=== PATIENT | female | born 1960 | race Caucasian/White ===

== ENCOUNTER 2024-11-08 12:35 | Emergency (ER) | payer OTHER ==
[~2024-11-08] VITALS: Ht 160 cm; Wt 77.0 kg
[2024-11-08 12:52] VITALS: O2SAT 98
[2024-11-08 13:01] VITALS: TEMP 36.7; O2SAT 98
[2024-11-08 15:31] LABS: EOSINOPHILS % 1.7 % (0.0-5.0); HEMATOCRIT. 38.9 % (36.0-48.0); HEMOGLOBIN. 13.1 g/dL (12.0-16.0); LYMPHOCYTES % 37.1 % (20.0-50.0); MEAN CORPUSCULAR HEMOGLOBIN 31.5 pg (28.0-32.0); MEAN CORPUSCULAR HGB CONC 33.7 g/dL (31.0-37.0); MEAN CORPUSCULAR VOLUME 93.5 fL (81.0-99.0); MEAN PLATELET VOLUME 9.2 fl (7.4-10.4); MONOCYTES % 6.6 % (2.0-8.0); NEUTROPHILS % 53.6 % (40.0-76.0); PLATELET 223 x1000/uL (130-400); RED BLOOD CELL COUNT 4.16 mill/uL (4.2-5.4); RED CELL DISTRIBUTION WIDTH 13.2 % (11.6-14.6); WHITE BLOOD COUNT 8.3 x1000/uL (4.5-11.0)
[2024-11-08 15:37] LABS: CHLORIDE 107 mEq/L (98-107); POTASSIUM 4.3 mEq/L (3.5-5.1); SODIUM 141 mEq/L (136-145)
[2024-11-08 15:38] LABS: CALCIUM 8.8 mg/dL (8.7-10.4); CARBON DIOXIDE 28 mEq/L (21-32)
[2024-11-08 15:43] LABS: CREATININE 0.8 mg/dL (0.6-1.0); GLUCOSE 102 mg/dL (70-105); UREA NITROGEN BLOOD 16 mg/dL (9-23)
[2024-11-08 15:50] LABS: TROPONIN I HIGH SENSITIVITY < 4 ng/L (3.0-34)
[2024-11-08 16:09] LABS: PROTHROMBIN TIME 10.5 sec (9.6-11.0)
[2024-11-08 17:13] VITALS: BP 131/78; PULSE 84; RESP 15
[2024-11-08] MEDS: KETOROLAC 30MG/ML VIAL IM ONE (17:13)
[2024-11-08] MEDS ORDERED: KETO10TA2 MT (17:14)
== END 2024-11-08 17:28 | disposition home or self-care (01) ==
LOC: ER 12:35
DX: J98.11 Atelectasis (principal)
CPT/HCPCS: 99285; 71045; 80048; 83880; 83690; 85025; 85610; 84484; 36415; 93005; 96372; J1885